=== PATIENT | female | born 1990 | race African-American/Black ===

== ENCOUNTER → 2016-08-26 22:02 | Emergency (ER) | payer SELFPAY ==
[~2016-08-26 22:02] MED LIST: ACET500CAP PO; GOODY'S EX PO; SPRINTEC 2828 DAY PO
== END | disposition home or self-care (01) ==
LOC: ER 22:02
DX: J02.9 Acute pharyngitis, unspecified (principal); Z79.82 Long term (current) use of aspirin; Z79.899 Other long term (current) drug therapy
CPT/HCPCS: 87070; 87880; 96372; 99283; J1170